=== PATIENT | female | born 1970 | race Hispanic/Latino ===

== ENCOUNTER 2018-11-15 15:32 | Observation (INO) | payer BC, OTHER ==
[~2018-11-15] VITALS: Ht 152.4 cm; Wt 70.8 kg
[2018-11-15] MEDS ORDERED: SODIUM CHLORIDE 0.9% 1000ML 1,000 ML IV STA (17:02)
[2018-11-15] MEDS ORDERED: CEFTRIAXONE SOD 1 GM/NS 50 ML 50 ML IV ONE (17:02)
[2018-11-15] MEDS ORDERED: ONDANSETRON HCL INJ 2MG/ML 2ML 2 MG/ML VIAL IV ONE (17:02)
[2018-11-15] MEDS ORDERED: MORPHINE SULFATE INJ 4 MG/ML INJ 1ML IV ONE (17:02)
[2018-11-15 17:33] LABS: BASOPHILS # (AUTO) 0.1 (0.0-0.1); BASOPHILS % 0.5 % (0.0-1.0); EOSINOPHILS # (AUTO) 0.2 (0.0-0.4); EOSINOPHILS % 1.6 % (0.0-6.0); HEMOGLOBIN 13.2 g/dL (12.0-16.0); LYMPHOCYTES # (AUTO) 2.6 (1.0-3.2); LYMPHOCYTES % 27.2 % (18.0-39.1); MEAN CORPUSCULAR HEMOGLOBIN 31.5 pg (28-32); MEAN CORPUSCULAR HGB CONC 35.7 g/dL (31-35); MEAN CORPUSCULAR VOLUME 88.3 fL (81-99); MONOCYTES # (AUTO) 0.5 (0.2-0.8); MONOCYTES % 4.7 % (4.4-11.3); NEUTROPHILS # (AUTO) 6.3 (2.1-6.9); NEUTROPHILS % 65.7 % (38.7-80.0); PLATELET COUNT 222 x10e3/uL (140-360); RED BLOOD COUNT 4.19 x10e6/uL (3.6-5.1); RED CELL DISTRIBUTION WIDTH 12.4 % (11.7-14.4)
[2018-11-15 17:46] LABS: CLARITY,URINE CLOUDY (CLEAR); COLOR,URINE YELLOW (YELLOW); KETONES,URINE NEGATIVE (NEGATIVE); LEUKOCYTE ESTERASE ,URINE 2+ (NEGATIVE); NITRITE,URINE NEGATIVE (NEGATIVE); PROTEIN,URINE DIPSTICK 2+ (NEGATIVE)
[2018-11-15 17:47] LABS: BILIRUBIN,URINE NEGATIVE (NEGATIVE); PREGNANCY TEST, URINE NEGATIVE (NEGATIVE); URINE UROBILINOGEN 0.2 mg/dL (0.2 - 1)
[2018-11-15 17:50] LABS: BACTERIA,URINE MODERATE /HPF; RBC,URINE 21-50 /HPF (0-5)
[2018-11-15 17:53] LABS: ALANINE AMINOTRANSFERASE 28 IU/L (0-55); ALKALINE PHOSPHATASE 97 IU/L (40-150); ANION GAP 14.4 mmol/L (8-16); BLOOD UREA NITROGEN 12 mg/dL (7-26); BUN/CREATININE RATIO 16 (6-25); CALCIUM 9.7 mg/dL (8.4-10.2); CARBON DIOXIDE 24 mmol/L (22-29); CHLORIDE 103 mmol/L (98-107); CREATININE, SERUM 0.74 mg/dL (0.57-1.11); EST GLOMERULAR FILTRATION RATE > 60 ML/MIN (60-); GLUCOSE 135 mg/dL (74-118); POTASSIUM 3.4 mmol/L (3.5-5.1); SODIUM 138 mmol/L (136-145)
[2018-11-15 18:05] LABS: AMYLASE 35 U/L (25-125); LIPASE 18 U/L (8-78)
--- NOTE | 2018-11-15 18:38 | Diagnostic Imaging Report ---
EXAM: CT of the abdomen and pelvis WITHOUT contrast HISTORY: Stone protocol, right flank and right lower quadrant pain COMPARISON: None available. TECHNIQUE: The abdomen and pelvis were scanned utilizing a multidetector helical scanner. Coronal and sagittal reformats are available. PROTOCOL: Renal colic IV CONTRAST: None, which limits sensitivity and specificity of evaluation of the soft tissues and vascular structures. ORAL CONTRAST: None, which limits sensitivity and specificity of evaluation of the bowel. RADIATION DOSE: Total DLP: 421.21 mGy*cm Estimated effective dose: (DLP x 0.015 x size factor) Dose modulation, iterative reconstruction, and/or weight based adjustment of the mA/kV was utilized to reduce the radiation dose to as low as reasonably achievable. COMPLICATIONS: None FINDINGS: LOWER THORAX: Unremarkable. HEPATOBILIARY: No definite focal hepatic lesions. No biliary ductal dilatation. Metallic clips in the right upper quadrant of the abdomen are compatible with prior cholecystectomy. SPLEEN: No splenomegaly. PANCREAS: No focal masses or ductal dilatation. ADRENALS: No adrenal nodule. KIDNEYS/URETERS: No hydronephrosis or solid mass lesion identified. A 2 mm calcification at the distal right ureter. An adjacent punctate calcific density appears just anterior to the distal ureter and a more distal 3 mm calcific density appears just posterior to the distal ureter ureter. A metallic surgical clip between the anterior margin of the right kidney and the liver. PELVIC ORGANS/BLADDER: The urinary bladder is partially decompressed, accentuating the diffusely thickened appearance of the urinary bladder wall. PERITONEUM / RETROPERITONEUM: No free air or fluid. GI TRACT: On limited evaluation of the gastrointestinal tract, no dilation or wall thickening identified. The appendix appears normal. The stomach is partially decompressed, limiting evaluation. LYMPH NODES: No pathologically enlarged lymph nodes. VESSELS: Diffuse scattered atherosclerotic vascular calcifications. BONES: No aggressive osseous lesion or acute fracture. SOFT TISSUES: Small fat-containing focal hernia no adjacent fat stranding. IMPRESSION: Probable 2 mm punctate, nonobstructing, stone within the distal right ureter. The 2 additional calcifications are likely phleboliths adjacent to the distal ureter. Signed by: Dr. En Sunshine D.O., M.M.M. on 11/15/2018 6:35 PM
[2018-11-15] MEDS ORDERED: HYDROMORPHONE 1MG/1ML INJ IV PRN (19:30)
[2018-11-15] MEDS ORDERED: ONDANSETRON HCL INJ 2MG/ML 2ML 2 MG/ML VIAL IV PRN (19:30)
[2018-11-15] MEDS ORDERED: ACETAMINOPHEN 325 MG TAB PO PRN (19:30)
--- OUTSIDE RECORDS SUMMARY | 2018-11-15 19:43 | XMS REPORT ---
Author [facility] Address Unknown Phone Unavailable Care Team Providers Care Pizza Cook Name Role Phone Preeti TORRES Unavailable Unavailable Problems This patient has no known problems. Allergies, Adverse Reactions, Alerts This patient has no known allergies or adverse reactions. Medications This patient has no known medications. Results Test Description Test Time Test Comments Text Results Atomic Results Result Comments CT ABDOMEN/PELVIS WO 2018-11-15 18:26:00 [place] [address] Patient Name: CESARIO CROWDER MR #: [id number] : 1970 Age/Sex: 48/F Req #: [id number] Adm Physician: Ordered by: LISSETTE DIETZ POT FEEDER Report #: [id number] Location: ER Room/Bed: Procedure: [id number] CT/CT ABDOMEN/PELVIS WO Exam Date: 11/15/18 Exam Time: 1800 REPORT STATUS: Signed EXAM: CT of the abdomen and pelvis WITHOUT contrast HISTORY: Stone protocol, right flank and right lower quadrant pain COMPARISON: None available. TECHNIQUE: The abdomen and pelvis were scanned utilizing a multidetector helical scanner. Coronal and sagittal reformats are available. PROTOCOL: Renal colic IV CONTRAST: None, which limits sensitivity and specificity of evaluation of the soft tissues and vascular structures. ORAL CONTRAST: None, which limits sensitivity and specificity of evaluation of the bowel. RADIATION DOSE: Total DLP: 421.21 mGy*cm Estimated effective dose: (DLP x 0.015 x size factor) Dose modulation, iterative reconstruction, and/or weight based adjustment of the mA/kV was utilized to reduce the radiation dose to as low as reasonably achievable. COMPLICATIONS: None FINDINGS: LOWER THORAX: Unremarkable. HEPATOBILIARY: No definite focal hepatic lesions. No biliary ductal dilatation. Metallic clips in the right upper quadrant of the abdomen are compatible with prior cholecystectomy. SPLEEN: No splenomegaly. PANCREAS: No focal masses or ductal dilatation. ADRENALS: No adrenal nodule. KIDNEYS/URETERS: No hydronephrosis or solid mass lesion identified. A 2 mm calcification at the distal right ureter. An adjacent punctate calcific density appears just anterior to the distal ureter and a more distal 3 mm calcific density appears just posterior to the distal ureter ureter. A metallic surgical clip between the anterior margin of the right kidney and the liver. PELVIC ORGANS/BLADDER: The urinary bladder is partially decompressed, accentuating the diffusely thickened appearance of the urinary bladder wall. PERITONEUM / RETROPERITONEUM: No free air or fluid. GI TRACT: On limited evaluation of the gastrointestinal tract, no dilation or wall thickening identified. The appendix appears normal. The stomach is partially decompressed, limiting evaluation. LYMPH NODES: No pathologically enlarged lymph nodes. VESSELS: Diffuse scattered atherosclerotic vascular calcifications. BONES: No aggressive osseous lesion or acute fracture. SOFT TISSUES: Small fat-containing focal hernia no adjacent fat stranding. IMPRESSION: Probable 2 mm punctate, nonobstructing, stone within the distal right ureter. The 2 additional calcifications are likely phleboliths adjacent to the distal ureter. Signed by: Cortney MorrisonO., M.M.M. on 11/15/2018 6:35 PM Dictated By: MIGUELITO DONAHUE DO 34 Transcribed By: DIOGO on 11/15/181834 COPY TO: LISSETTE DIETZ NP
[2018-11-15] MEDS: CEFTRIAXONE SOD 1 GM/NS 50 ML 50 ML IV SCH (19:58)
[2018-11-15] MEDS ORDERED: HYDROMORPHONE 2MG/ML 2 MG/ML ML IV PRN (20:00)
[2018-11-15] MEDS: SODIUM CHLORIDE 0.9% 1000ML 1,000 ML IV SCH (20:38)
[2018-11-16] VITALS (7 sets, daily range): BP systolic 93–108; BP diastolic 47–58
--- NOTE | 2018-11-16 02:21 | NUR ---
Pt received from ER. Pt A&O and in no apparent distress. Pt on room air and no tele. Pt son at bedside. All safety measures ensured and pt call baca near.
[2018-11-16] MEDS: SODIUM CHLORIDE 0.9% 1000ML 1,000 ML IV SCH ×3 (05:19→20:17)
[2018-11-16 06:11] LABS: BASOPHILS # (AUTO) 0.1 (0.0-0.1); BASOPHILS % 0.6 % (0.0-1.0); EOSINOPHILS # (AUTO) 0.1 (0.0-0.4); EOSINOPHILS % 1.6 % (0.0-6.0); HEMATOCRIT 32.8 % (34.2-44.1); HEMOGLOBIN 11.1 g/dL (12.0-16.0); LYMPHOCYTES # (AUTO) 2.8 (1.0-3.2); LYMPHOCYTES % 31.8 % (18.0-39.1); MEAN CORPUSCULAR HEMOGLOBIN 30.8 pg (28-32); MEAN CORPUSCULAR HGB CONC 33.8 g/dL (31-35); MEAN CORPUSCULAR VOLUME 91.1 fL (81-99); MONOCYTES # (AUTO) 0.5 (0.2-0.8); MONOCYTES % 5.6 % (4.4-11.3); NEUTROPHILS # (AUTO) 5.2 (2.1-6.9); NEUTROPHILS % 59.9 % (38.7-80.0); PLATELET COUNT 193 x10e3/uL (140-360); RED CELL DISTRIBUTION WIDTH 12.4 % (11.7-14.4)
[2018-11-16 06:57] LABS: ALANINE AMINOTRANSFERASE 36 IU/L (0-55); ALBUMIN 3.2 g/dL (3.5-5.0); ALKALINE PHOSPHATASE 81 IU/L (40-150); ANION GAP 13.8 mmol/L (8-16); BLOOD UREA NITROGEN 9 mg/dL (7-26); BUN/CREATININE RATIO 13 (6-25); CALCIUM 8.6 mg/dL (8.4-10.2); CARBON DIOXIDE 24 mmol/L (22-29); CHLORIDE 107 mmol/L (98-107); CREATININE, SERUM 0.71 mg/dL (0.57-1.11); EST GLOMERULAR FILTRATION RATE > 60 ML/MIN (60-); GLUCOSE 129 mg/dL (74-118); POTASSIUM 3.8 mmol/L (3.5-5.1); SODIUM 141 mmol/L (136-145)
[2018-11-16] MEDS ORDERED: DEXTROSE 50% SYRINGE 50 ML IV PRN (10:00)
[2018-11-16 10:27] LABS: CHOL/HDL RATIO 4.7 (3.0-3.6)
[2018-11-16 10:48] LABS: FREE THYROXINE INDEX 1.909 (1.4-3.8); THYROID STIMULATING HORMONE 1.72 uIU/mL (0.350-4.940)
[2018-11-16] MEDS: INSULIN REGULAR, HUMAN 100 UNIT/1 ML 3ML VIAL SQ SCH ×3 (11:30→20:12)
--- NOTE | 2018-11-16 14:22 | NUR ---
SOCIAL WORK INITIAL ASSESSMENT Supervisor Accounting Clerks to bedside to discuss plan of care with patient/family. CM/SW role and care transitions discussed. Anticipated discharge plan discussed along with duration of care. CM/SW discussed patients right to make decisions in care. CM/SW work hours given. Patient lives: HOUSE WITH FAMILY Admit/Transfer: VIA SURGERY POA/Emergency contact: LUC [phone] Current/Previous Home Health: NONE PCP/Follow-up Care: ANDREA Current/Previous DME: NONE Other Services: NONE Employment Status: NONE Areas of Concerns: NONE Referral Needs: NONE Education Needs: NONE IMM/BHANDARI given and signed (if applicable): NA Goal for discharge: RETURN HOME CM/SW left business card at the bedside with contact information. Name and number was also written on the patients whiteboard. Patient verbalized understanding of discussion. CM will follow-up with ongoing discharge and transition of care needs.
--- NOTE | 2018-11-16 15:44 | History and Physical ---
Ms. Diaz is a pleasant 48-year-old woman, born in [place], speaks only Nigerian, who presented to the emergency room with a complaint of red urine and painful urination. HISTORY OF PRESENT ILLNESS: The patient reports she has had this for the last couple of days and evidently some right flank pain as well. She is not sure if she has had any fever. She denies having urinary tract infection in the past. PAST MEDICAL HISTORY: Significant for cholecystectomy about 20 years ago and surgery for endometritis about 13 years ago. MEDICATIONS: She reports she takes no medications at home. Does not know of any or other problems. PERSONAL AND SOCIAL HISTORY: She does not work. 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 Does not speak any Lithuanian. REVIEW OF SYSTEMS: Negative. PHYSICAL EXAMINATION: GENERAL: At this time shows an obese woman 5 feet tall, 160 pounds. VITAL SIGNS: Afebrile, blood pressure 99/53. HEAD, EYES, EARS, NOSE, AND THROAT: Unremarkable. NECK: Thick. No jugular venous distention. THORAX: Heart sounds S1 and S2 are equal. No murmurs. LUNGS: Clear. ABDOMEN: Protuberant. EXTREMITIES: No cyanosis, clubbing, or edema. LABORATORY DATA: Urinalysis shows 21-50 red cells, 11-20 white cells. Glucose is of 129 and 135. CAT scan of the abdomen shows a 2 mm right ureteral stone. BUN 9, creatinine 0.7. ASSESSMENT: 1. Urinary tract infection. 2. Tiny ureteral stone. 3. . PLAN: We will give IV fluids and antibiotics. Check hemoglobin A1c and repeat glucoses. Further management based on clinical course. MD TAMIE Salguero/MODL /[id number] cc: Mike Mojica MD
--- NOTE | 2018-11-16 19:00 | NUR ---
received report from day nurse. patient is resting comfortably in bed. bed is in lowest position and call baca is within reach. will continue to monitor patient.
[2018-11-16] MEDS: CEFTRIAXONE SOD 1 GM/NS 50 ML 50 ML IV SCH (20:27)
--- NOTE | 2018-11-16 22:57 | Consultation ---
DATE OF CONSULTATION: 11/16/2018 Urologic Consultation Consultation is called by the emergency room. CHIEF COMPLAINT AND REASON FOR CONSULTATION: Ureteral calculus. HISTORY OF PRESENT ILLNESS: Ms. Diaz is a 48-year-old female patient, who was contacted by an outside emergency room. She has had signs of urinary tract infection as well as burning with urination and obstructing ? infected stones. She denied fevers. No chills. Denied nausea or vomiting. Reports pain at 10/10. PAST MEDICAL HISTORY: As above. MEDICATIONS: Please see MAR. ALLERGIES: SULFA. SOCIAL HISTORY: Denied smoking or drinking. FAMILY HISTORY: Denied urologic stones or malignancies. REVIEW OF SYSTEMS: Noncontributory, other than problems mentioned above for 12 organ systems. PHYSICAL EXAMINATION: GENERAL: Middle-aged female, currently in no acute distress. VITAL SIGNS: Temperature 99, pulse 93, respirations 17, and blood pressure 114/63. HEENT: Sclerae anicteric. NECK: Supple. BACK: Without costovertebral angle tenderness bilaterally. ABDOMEN: Currently, soft, nontender, and nondistended. No palpable mass. No palpable hernias. No palpable lymphadenopathy. : Normal female external genitalia. EXTREMITIES: No edema. NEURO: Moves 4 extremities. PSYCH: Alert. Mood is appropriate. SKIN: Intact. Normal color. PERTINENT LABORATORY DATA: CT scan revealing a 2 mm right distal ureteral calculus with proximal hydronephrosis, ? 3 mm right distal ureteral calculus as well. Urinalysis, 21-50 reds, 11-20 whites, 2+ protein. Sodium 141, potassium 3.8, chloride 107, bicarb 24, BUN 9, creatinine 0.7, glucose 129. Hemoglobin 13, hematocrit 37, platelet count 232,000, white cell count 9600. IMPRESSION: 1. Right ureteral calculus. 2. Right hydronephrosis. 3. Urinary tract infection. 4. Microscopic hematuria. 5. Renal colic. 6. Hypotension. PLAN: The patient has been begun on broad-spectrum IV antibiotics, we will agree with this. Hydrate the patient aggressively. Hopefully, she will pass her stone. Should she fail a trial passage, may need stenting. Thank you for allowing me to participate in the care of your patient. We will be happy to follow along with you. MD BALAJI Block/MODL /[id number]
[2018-11-17] VITALS (8 sets, daily range): BP systolic 88–103; BP diastolic 46–54
--- NOTE | 2018-11-17 07:08 | NUR ---
report given to day nurse. patient is resting comfortably in bed. bed is in lowest position and call baca is within reach. will continue to monitor patient.
[2018-11-17] MEDS: INSULIN REGULAR, HUMAN 100 UNIT/1 ML 3ML VIAL SQ SCH ×4 (07:30→20:17)
[2018-11-17] MEDS: SODIUM CHLORIDE 0.9% 1000ML 1,000 ML IV SCH ×3 (08:21→20:17)
--- NOTE | 2018-11-17 13:20 | Diagnostic Imaging Report ---
EXAM: Abdomen 2 Views INDICATION: ^TO CHECK OUT KIDNEY STONES ^[id number] ^[id number] COMPARISON: Ct A/P 11/15/2018 FINDINGS: Lines/tubes: None. Moderate of stool in the colon. No dilated loops of small bowel. Tiny calcification in the right pelvis may still represent the distal right ureteral stone. No abnormal soft tissue masses. No degenerative changes in the lumbar spine and pelvis. Surgical clips overlying the right upper quadrant. IMPRESSION: Tiny calcification in the right pelvis may still represent the distal right ureteral stone. Signed by: Dr. Meaghan Mendez M.D. on 11/17/2018 1:16 PM
[2018-11-17] MEDS: CEFTRIAXONE SOD 1 GM/NS 50 ML 50 ML IV SCH (20:17)
[2018-11-18] VITALS: BP 108/55
[2018-11-18] MEDS: SODIUM CHLORIDE 0.9% 1000ML 1,000 ML IV SCH ×2 (03:27→11:36)
[2018-11-18 05:45] VITALS: BP 93/51
--- NOTE | 2018-11-18 06:49 | NUR ---
report given to day nurse. patient is resting in bed. bed is in lowest position and call baca is within reach.
[2018-11-18] MEDS: INSULIN REGULAR, HUMAN 100 UNIT/1 ML 3ML VIAL SQ SCH ×2 (07:30→11:30)
[2018-11-18 07:41] VITALS: BP 99/53
[2018-11-18 09:45] VITALS: BP 99/53
[2018-11-18 11:35] VITALS: BP 102/51
--- NOTE | 2018-11-18 11:42 | NUR ---
PT ASKED TO CLARIFY PROCEDURE ORDERS WITH MD ABDUL BECAUSE THIS MORNING DURING ROUNDS HE STATED SHE WOULD GO HOME TODAY. PAGED AND SPOKE TO DR. ABDUL STATES PT OK TO D/C HOME TODAY FROM HIS STANDPOINT SINCE PT IS NO LONGER HAVING PAIN.
--- NOTE | 2018-11-18 13:31 | NUR ---
DR. MENDEZ MAKING ROUNDS AT THIS TIME NOTIFIED PT CAN D/C HOME PER DR. ABDUL. DR. MENDEZ REQUESTS DR. ABDUL BE CALLED FOR RECOMMENDATION ON ANTIBIOTIC DUE TO URINE Cx POSITIVE FOR E.COLI. SPOKE TO DR. ABDUL HE RECOMMENDS CIPRO. DR. MENDEZ NOTIFIED AT THIS TIME.
[2018-11-18] MEDS ORDERED: CIPRO500 MG PO (13:43)
--- NOTE | 2018-11-18 14:00 | NUR ---
D/C INSTRUCTIONS AND PRESCRIPTION FOR CIPRO GIVEN. PT VERBALIZED UNDERSTANDING. IV D/C AND PRESSURE DRESSING APPLIED.
--- NOTE | 2018-11-18 14:34 | Discharge Summary ---
Ms. Diaz is a pleasant 48-year-old woman, generally healthy, who presented to the emergency room with flank pain and dysuria. HOSPITAL COURSE: Initial evaluation suggested ureteral stone and urinary tract infection. Urine culture grew E coli sensitive to all types of antibiotics, nonresistant, but the patient is allergic to Bactrim and she was given initially Rocephin. She is currently afebrile, but KUB done on the shows continued small stone. She was seen by Dr. Mojica and today he feels that she can be discharged to home. Her glucoses are all mildly abnormal, 138, 141, 163, 129, and 128. Her thyroid functions are normal. Hemoglobin A1c is 6.4. She is discharged home to take ciprofloxacin 500 mg twice a day and follow up with Dr. Mojica in his office. She will follow up with Dr. Mike Nava for management of hyperglycemia. DISCHARGE DIAGNOSES: 1. Urinary tract infection. 2. Renal stone. 3. Hyperglycemia. MD TAMIE Salguero/MIRIAN /[id number] cc: Mike Nava
[2018-11-18] MEDS ORDERED: CIPROFLOXACIN 500 MG TAB PO SCH (17:00)
== END 2018-11-18 14:05 | disposition home or self-care (01) ==
LOC: ER 15:32 → ERHOLD 19:40 → IMCU 11-16 02:33 → OBSVTOIN 11-18 12:57 → INTOOBSV 11-18 12:57
PROVIDERS: ADMIT Internal Medicine Cardiovascular Disease; ATTEND Internal Medicine Cardiovascular Disease
DX: N13.6 Pyonephrosis (principal); R31.29 Other microscopic hematuria; Z90.49 Acquired absence of other specified parts of digestive tract; N80.9 Endometriosis, unspecified; Z88.2 Allergy status to sulfonamides; Z88.8 Allergy status to other drugs, medicaments and biological substances; I95.9 Hypotension, unspecified; B96.20 Unspecified Escherichia coli [E. coli] as the cause of diseases classified elsewhere; R73.9 Hyperglycemia, unspecified
CPT/HCPCS: 36415 ×4; 74018; 74176; 80053 ×2; 80061; 81001; 81025; 82150; 82948 ×3; 83036; 83690; 84436; 84443; 84479; 85025 ×2; 87086; 87186; 93005; 99284; G0378 ×4; J0696 ×3; J1170; J1817; J2270; J2405 ×2; J7030 ×4

== ENCOUNTER 2020-03-29 17:56 | Emergency (ER) | payer BC ==
[~2020-03-29] VITALS: Ht 154.9 cm; Wt 74.8 kg
[~2020-03-29 17:56] MED LIST: CIPRO500 MG PO
--- OUTSIDE RECORDS SUMMARY | 2020-03-29 18:24 | XMS REPORT | Continuity of Care Document ---
Author Author [facility] t Organization [facility] Address [address] [place] [address] Phone Unavailable Care Team Providers Care Pin Feather Machine Operator Name Role Phone MARY UGALDE PCP SWEET, Catalina LAIRD Attphys Unavailable MENDEZ, A GIOVANY Attphys Unavailable MENDEZ, A GIOVANY Admphys Unavailable Payers Payer Name Policy Type Policy Number Effective Date Expiration Date Preeti courtney [employer] Ppo [id number] [facility] I [facility] Problems Condition Name Condition Details Condition Category Status Onset Date Resolution Date Last Treatment Date Treating Clinician Comments Source Urinary tract infection UTI (urinary tract infection) Problem Active [facility] Calculus of ureter Ureterolithiasis Problem Active [facility] Allergies, Adverse Reactions, Alerts Allergy Name Allergy Type Status Severity Reaction(s) Onset Date Inacti ve Date Treating Clinician Comments Source Sulfamethoxazole Allergy to Substance Active Mild HIVES 2018-11-15 00:00:00 [facility] Trimethoprim Allergy to Substance Active Mild HIVES 2018-11-15 00:00:0 0 [facility] Medications Ordered Medication Name Filled Medication Name Start Date Stop Da te Current Medication? Ordering Clinician Indication Dosage Frequency Signature (SIG) Comments Components Source Ciprofloxacin Hcl (Cipro) 500 Mg Tablet Ciprofloxacin Hcl (C ipro) 500 Mg Tablet Yes 500 Twice A Day [facility] Procedures Procedure Date / Time Performed Performing Clinician [facility] e X-ray of chest, single view 2019-08-13 00:00:00 NATALIYA COLEMAN [facility] CT of abdomen and pelvis without contrast 2018-11-15 00:00:00 LISSETTE ZHU [facility] Encounters Start Date/Time End Date/Time Encounter Type Admission Type Attendi [facility] Facility Care Department Encounter ID Source 2019-08-13 14:50:00 2019-08-13 19:54:00 Departed Emergency Room 1 JYOTI GHOSH [facility] [id number] [facility] 2018-11-15 19:40:00 2018-11-18 14:05:00 Discharged Inpatient (obs) 1 GIOVANY MENDEZ [facility] [id number] [facility] Results Test Description Test Time Test Comments Results Result Comments Source B-Type Natriuretic Peptide 2019-08-13 17:00:00 Test Item B-Type Natriuretic Peptide (test code = 88312-7) 20.7 0-100 [facility] CenterCreatine Kinase [id number] 16:58:00* Test Item Value Reference Range Interpretation Comments Creatine Kinase MB (test code = 27659-0) 2.40 0-5.0 [facility] CenterTroponin [id number] 16:58:00* Test Item Value Reference Range Interpretation Comments Troponin I (test code = DNZ3379) 0.028 0-0.300 [facility] CenterProthrombin Glyn3899-86-94 16:57:00* Test Item Value Reference Range Interpretation Comments Prothrombin Time (test code = 5902-2) 11.9 11.9-14.5 [facility] CenterProthromb Time International Ratio 2019-08-13 16:57:00* Test Item Value Reference Range Interpretation Comments Prothromb Time International Ratio (test code = 6301-6) 0.83 Oral Anticoagulant Therapy INR Values:1. Low Intensity Therapy 1.5 - 2.02 . Moderate Intensity Therapy 2.0 - 3.03. High Intensity Therapy(1) 2.5 - 3. 54. High Intensity Therapy(2) 3.0 - 4.05. Panic Value INR > 5.0 [facility] CenterActivated Partial Thromboplast Time 2019-08-13 16:57:00* Test Item Value Reference Range Interpretation Comments Activated Partial Thromboplast Time (test code = 30912-2) 29.2 23.8-35.5 [facility] Yylhg4565-95-31 16:49:00* Test Item Value Reference Range Interpretation Comments Sodium Level (test code = 2951-2) 138 136-145 [facility] CenterPotassium Lbtlk4131-78-31 16:49:00* Test Item Value Reference Range Interpretation Comments Potassium Level (test code = 2823-3) 3.8 3.5-5.1 [facility] CenterChloride Fvcxn6883-27-35 16:49:00* Test Item Value Reference Range Interpretation Comments Chloride Level (test code = 2075-0) 102 98-107 [facility] CenterCarbon Dioxide Axxrb5003-33-50 16:49:00* Test Item Value Reference Range Interpretation Comments Carbon Dioxide Level (test code = 2028-9) 26 22-29 [facility] CenterAnion Ntr6667-80-68 16:49:00* Test Item Value Reference Range Interpretation Comments Anion Gap (test code = 46184-1) 13.8 8-16 [facility] CenterBlood Urea Vbtoajgp3119-50-10 16:49:00* Test Item Value Reference Range Interpretation Comments Blood Urea Nitrogen (test code = 3094-0) 12 7-26 [facility] CenterCreatinine2020-01-21 16:49:00* Test Item Value Reference Range Interpretation Comments Creatinine (test code = 2160-0) 0.79 0.57-1.11 [facility] CenterBUN/Creatinine Lhsyp4055-17-44 16:49:00* Test Item Value Reference Range Interpretation Comments BUN/Creatinine Ratio (test code = 3097-3) 15 6-25 [facility] CenterEstimat Glomerular Filtration Rate 2019-08-13 16:49:00* Test Item Value Reference Range Interpretation Comments Estimat Glomerular Filtration Rate (test code = 638244962) > 60 >60 Ranges were taken from the National Kidney Disease Education Program and the [facility] Kidney Foundation literature.Reference ranges:60 or greater: Wwvfmq75-00 ( for 3 consecutive months): Chronic kidney disease 15 or less: Kidney failureWilson N. Jones Regional Medical CenterGlucose Czwpw2734-10-70 16:49:00* Test Item Value Reference Range Interpretation Comments Glucose Level (test code = LOS2935) 198 74-118 H [facility] CenterCalcium Gayqo9157-68-58 16:49:00* Test Item Value Reference Range Interpretation Comments Calcium Level (test code = 35588-1) 9.5 8.4-10.2 [facility] CenterTotal Tjmarhmbe5970-43-26 16:49:00* Test Item Value Reference Range Interpretation Comments Total Bilirubin (test code = 1975-2) 0.3 0.2-1.2 [facility] CenterAspartate Amino Transf (AST/SGOT) 2019-08-13 16:49:00* Test Item Value Reference Range Interpretation Comments Aspartate Amino Transf (AST/SGOT) (test code = Aspartate Amino Transf (AST/SGOT)) 36 5-34 H [facility] CenterAlanine Aminotransferase (ALT/SGPT) 2019-08-13 16:49:00* Test Item Value Reference Range Interpretation Comments Alanine Aminotransferase (ALT/SGPT) (test code = 1742-6) 53 0-55 [facility] CenterTotal Ebyywkk5395-10-94 16:49:00* Test Item Value Reference Range Interpretation Comments Total Protein (test code = 2885-2) 7.5 6.5-8.1 [facility] CenterAlbumin2020-01-21 16:49:00* Test Item Value Reference Range Interpretation Comments Albumin (test code = 1751-7) 4.1 3.5-5.0 [facility] CenterGlobulin2020-01-21 16:49:00* Test Item Value Reference Range Interpretation Comments Globulin (test code = 92763-5) 3.4 2.3-3.5 [facility] CenterAlbumin/Globulin Pdjut7409-17-12 16:49:00 * Test Item Value Reference Range Interpretation Comments Albumin/Globulin Ratio (test code = 1759-0) 1.2 0.8-2.0 [facility] CenterAlkaline Wealupkwrum0784-99-57 16:49:00* Test Item Value Reference Range Interpretation Comments Alkaline Phosphatase (test code = 6768-6) 96 40-150 [facility] CenterCreatine Kdjhwb9899-72-10 16:49:00* Test Item Value Reference Range Interpretation Comments Creatine Kinase (test code = 2157-6) 150 29-168 [facility] CenterLipase2020-01-21 16:49:00* Test Item Value Reference Range Interpretation Comments Lipase (test code = 3040-3) 23 8-78 [facility] CenterWhite Blood Rbbov0714-21-79 16:37:00* Test Item Value Reference Range Interpretation Comments White Blood Count (test code = 6690-2) 6.78 4.8-10.8 [facility] CenterRed Blood Njkbr3048-57-50 16:37:00* Test Item Value Reference Range Interpretation Comments Red Blood Count (test code = 789-8) 4.18 3.6-5.1 [facility] CenterHemoglobin2020-01-21 16:37:00* Test Item Value Reference Range Interpretation Comments Hemoglobin (test code = 94828-2) 13.3 12.0-16.0 [facility] CenterHematocrit2020-01-21 16:37:00* Test Item Value Reference Range Interpretation Comments Hematocrit (test code = 4544-3) 37.8 34.2-44.1 [facility] CenterMean Corpuscular Ztibta1208-02-91 16:37:00* Test Item Value Reference Range Interpretation Comments Mean Corpuscular Volume (test code = 787-2) 90.4 81-99 [facility] CenterMean Corpuscular Fehtmslrtj9164-90-05 16:37:00* Test Item Value Reference Range Interpretation Comments Mean Corpuscular Hemoglobin (test code = 785-6) 31.8 28-32 [facility] CenterMean Corpuscular Hemoglobin Concent 2019-08-13 16:37:00* Test Item Value Reference Range Interpretation Comments Mean Corpuscular Hemoglobin Concent (test code = 786-4) 35.2 31-35 H [facility] CenterRed Cell Distribution Dihwj9955-06-18 16:37:00* Test Item Value Reference Range Interpretation Comments Red Cell Distribution Width (test code = 32258-8) 12.5 11.7 -14.4 [facility] CenterPlatelet Jiuij4289-14-94 16:37:00* Test Item Value Reference Range Interpretation Comments Platelet Count (test code = 777-3) 220 140-360 [facility] CenterNeutrophils (%) (Auto)2019-08-13 16:37:00 * Test Item Value Reference Range Interpretation Comments Neutrophils (%) (Auto) (test code = 64402-8) 46.2 38.7-80.0 [facility] CenterLymphocytes (%) (Auto)2019-08-13 16:37:00 * Test Item Value Reference Range Interpretation Comments Lymphocytes (%) (Auto) (test code = 736-9) 42.8 18.0-39.1 H [facility] CenterMonocytes (%) (Auto)2019-08-13 16:37:00* Test Item Value Reference Range Interpretation Comments Monocytes (%) (Auto) (test code = 5905-5) 5.5 4.4-11.3 [facility] CenterEosinophils (%) (Auto)2019-08-13 16:37:00 * Test Item Value Reference Range Interpretation Comments Eosinophils (%) (Auto) (test code = 713-8) 4.0 0.0-6.0 [facility] CenterBasophils (%) (Auto)2019-08-13 16:37:00* Test Item Value Reference Range Interpretation Comments Basophils (%) (Auto) (test code = 706-2) 0.9 0.0-1.0 [facility] CenterIM GRANULOCYTES %2019-08-13 16:37:00* Test Item Value Reference Range Interpretation Comments IM GRANULOCYTES % (test code = IM GRANULOCYTES %) 0.6 0.0- 1.0 [facility] CenterNeutrophils # (Auto)2019-08-13 16:37:00* Test Item Value Reference Range Interpretation Comments Neutrophils # (Auto) (test code = 751-8) 3.1 2.1-6.9 [facility] CenterLymphocytes # (Auto)2019-08-13 16:37:00* Test Item Value Reference Range Interpretation Comments Lymphocytes # (Auto) (test code = 63281-7) 2.9 1.0-3.2 [facility] CenterMonocytes # (Auto)2019-08-13 16:37:00* Test Item Value Reference Range Interpretation Comments Monocytes # (Auto) (test code = 742-7) 0.4 0.2-0.8 [facility] CenterEosinophils # (Auto)2019-08-13 16:37:00* Test Item Value Reference Range Interpretation Comments Eosinophils # (Auto) (test code = 711-2) 0.3 0.0-0.4 [facility] CenterBasophils # (Auto)2019-08-13 16:37:00* Test Item Value Reference Range Interpretation Comments Basophils # (Auto) (test code = 704-7) 0.1 0.0-0.1 [facility] CenterAbsolute Immature Granulocyte (auto 2019-08-13 16:37:00* Test Item Value Reference Range Interpretation Comments Absolute Immature Granulocyte (auto (roel t code = Absolute Immature Granulocyte (auto) 0.04 0-0.1 [facility] CenterCHEST SINGLE (NOT PORTABLE)2019-08-13 16:33:00 [place] [address] Patient Name: CESARIO CROWDER MR #: [id number] : 1970 Age/Sex: 48/F Req #: [id number] Adm Physician: Ordered by: NATALIYA COLEMAN DELIVERY MAN Report #: [id number] Location: ER Room/Bed: Procedure: [id number] DX/CHEST SINGLE (NOT PORTABLE) Exam Date: Exam Time : REPORT STATUS: Signed EXAMINA TION: CHEST SINGLE (NOT PORTABLE) INDICATION: Chest pain COMPARIS ON: None FINDINGS: LINES/TUBES:None LUNGS:The lungs are well -inflated. No focal consolidation or pulmonary edema. PLEURA:No pleural eff usion or pneumothorax. MEDIASTINUM:The cardiomediastinal silhouette appears normal in size and shape. BONES/SOFT TISSUES:No acute osseous injury. ABDOMEN:No free air under the diaphragm. Status post cholecystectomy. I MPRESSION: No focal pneumonia or pulmonary edema. Signed by: Corine Tate MD on 08/13/2019 4:33 PM Dictated By: CORINE TATE MD 32 Transcribed By: DIOGO on 08/13/191632 COPY TO: NATALIYA COLEMAN NP Bedside Jiggbjl7639-98-25 11:31:00* Test Item Value Reference Range Interpretation Comments Bedside Glucose (test code = 05687-3) 128 70-120 H Meter ID: [id number] [facility]Bedside Glucose 2018-11-18 11:31:00* Test Item Value Reference Range Interpretation Comments Bedside Glucose (test code = 30740-6) 128 70-120 H Meter ID: [id number] [facility]ressABDOM-1VIEW (KUB) 2018-11-17 13:06:00 [place] [address] Patient Name: CESARIO CROWDER MR #: [id number] : 1970 Age/Sex: 48/F Req #: [id number] Adm Physician: GIOVANY MENDEZ MD Ordered by: GLENN ABDUL MD Report #: [id number] Location: [facility] Room/Bed: [place] [address] Procedure: [id number] DX/ABDOMEN-1VIEW (KUB) Exam Date: 11/17/18 Exam Singh e: 1152 REPORT STATUS: Signed EX AM: Abdomen 2 Views INDICATION: TO CHECK OUT KIDNEY STONES [id number] 1152 COMPARISON: Ct A/P 11/15/2018 FINDINGS: Lines/tubes: None. Moderate of stool in the colon. No dilated loops of small bowel. Ti ny calcification in the right pelvis may still represent the distal right uret eral stone. No abnormal soft tissue masses. No degenerative changes in th e lumbar spine and pelvis. Surgical clips overlying the right upper quadran t. IMPRESSION: Tiny calcification in the right pelvis may still represent the distal right ureteral stone. Signed by: Dr. Meaghan Perez M.D. on 11/17/2018 1:16 PM Dictated By: MEAGHAN PEREZ MD Elect ronically Signed By: MEAGHAN PEREZ MD on 11/17/18 1316 Transcribed By : DIOGO on 11/17/18 1316 COPY TO: GLENN ABDUL MD Urine Xxghjdl8873-79-36 09:40:00* Test Item Value Reference Range Interpretation Comments Urine Culture (test code = 630-4) Organism: ESCHERICHIA COLI [facility] CenterUrine Vewshey8338-47-61 09:40:00* Test Item Value Reference Range Interpretation Comments Urine Culture (test code = 630-4) No Result Data Provided [facility] CenterFree Thyroxine Xrflu2345-30-14 11:01:00* Test Item Value Reference Range Interpretation Comments Free Thyroxine Index (test code = 62237-7) 1.9090 1.4-3.8 [facility] CenterThyroxine (T4)2018-11-16 11:01:00* Test Item Value Reference Range Interpretation Comments Thyroxine (T4) (test code = 3026-2) 6.97 4.5-10.9 Our current method for Total T4 is not recommended for use as the only marker fo r evaluating patients for thyroid disorders.[facility] CenterTriiodothyronine (T3) Ibwdhh8893-16-13 11:01:00* Test Item Value Reference Range Interpretation Comments Triiodothyronine (T3) Uptake (test code = 3050-2) 27.39 22.5 -37.0 [facility] CenterThyroid Stimulating Hormone (TSH) 2018-11-16 11:01:00* Test Item Value Reference Range Interpretation Comments Thyroid Stimulating Hormone (TSH) (test code = 06154-2) 1.720 0.350-4.940 [facility] CenterFree Thyroxine Cdlwr9905-77-70 11:01:00* Test Item Value Reference Range Interpretation Comments Free Thyroxine Index (test code = 60427-9) 1.9090 1.4-3.8 [facility] CenterThyroxine (T4)2018-11-16 11:01:00* Test Item Value Reference Range Interpretation Comments Thyroxine (T4) (test code = 3026-2) 6.97 4.5-10.9 Our current method for Total T4 is not recommended for use as the only marker fo r evaluating patients for thyroid disorders.[facility] CenterTriiodothyronine (T3) Pyofcg4247-00-88 11:01:00* Test Item Value Reference Range Interpretation Comments Triiodothyronine (T3) Uptake (test code = 3050-2) 27.39 22.5 -37.0 [facility] CenterThyroid Stimulating Hormone (TSH) 2018-11-16 11:01:00* Test Item Value Reference Range Interpretation Comments Thyroid Stimulating Hormone (TSH) (test code = 35939-4) 1.720 0.350-4.940 [facility] CenterTriglycerides Ydclh7366-39-08 10:28:00* Test Item Value Reference Range Interpretation Comments Triglycerides Level (test code = 2571-8) 148 0-149 [facility] CenterCholesterol Pexbs0487-32-48 10:28:00* Test Item Value Reference Range Interpretation Comments Cholesterol Level (test code = 2093-3) 215 0-199 H Less than 200 mg/dL Low Ydcs028 - 239 mg/dL Borderline Jtlb146 m g/dl and greater High Risk [facility] CenterLDL Wxrrqcrzexn0004-12-57 10:28:00* Test Item Value Reference Range Interpretation Comments LDL Cholesterol (test code = 2089-1) 139 60-130 [facility] Cqdvsvcpgfc7252-83-43 10:28:00* Test Item Value Reference Range Interpretation Comments HDL Cholesterol (test code = 2085-9) 46 40-60 [facility] CenterCholesterol/HDL Oxcup7455-70-31 10:28:00 * Test Item Value Reference Range Interpretation Comments Cholesterol/HDL Ratio (test code = 9830-1) 4.7 3.0-3.6 H [facility] CenterTriglycerides Yficu7891-81-80 10:28:00* Test Item Value Reference Range Interpretation Comments Triglycerides Level (test code = 2571-8) 148 0-149 [facility] CenterCholesterol Rhzdf7790-12-05 10:28:00* Test Item Value Reference Range Interpretation Comments Cholesterol Level (test code = 2093-3) 215 0-199 H Less than 200 mg/dL Low Dgvx237 - 239 mg/dL Borderline Dgvs671 m g/dl and greater High Risk [facility] CenterLDL Zwtgjoaldaa4807-52-09 10:28:00* Test Item Value Reference Range Interpretation Comments LDL Cholesterol (test code = 2089-1) 139 60-130 [facility] Jtivhvlrril8300-19-28 10:28:00* Test Item Value Reference Range Interpretation Comments HDL Cholesterol (test code = 2085-9) 46 40-60 [facility] CenterCholesterol/HDL Rugpr9409-00-08 10:28:00 * Test Item Value Reference Range Interpretation Comments Cholesterol/HDL Ratio (test code = 9830-1) 4.7 3.0-3.6 H [facility] CenterHemoglobin A1c Dpjyvua2180-73-46 10:27:00 * Test Item Value Reference Range Interpretation Comments Hemoglobin A1c Percent (test code = Hemoglobin A1c Percent) 6.4 4.0-7.0 [facility] CenterHemoglobin A1c Ejueeyr1355-82-56 10:27:00 * Test Item Value Reference Range Interpretation Comments Hemoglobin A1c Percent (test code = Hemoglobin A1c Percent) 6.4 4.0-7.0 [facility] Hospitalodium Bmgqc0923-33-93 07:13:00* Test Item Value Reference Range Interpretation Comments Sodium Level (test code = 2951-2) 141 136-145 [facility] CenterPotassium Lytjo9222-55-23 07:13:00* Test Item Value Reference Range Interpretation Comments Potassium Level (test code = 2823-3) 3.8 3.5-5.1 [facility] CenterChloride Ikgon2403-74-76 07:13:00* Test Item Value Reference Range Interpretation Comments Chloride Level (test code = 2075-0) 107 98-107 [facility] CenterCarbon Dioxide Fneza1165-72-93 07:13:00* Test Item Value Reference Range Interpretation Comments Carbon Dioxide Level (test code = 2028-9) 24 22-29 [facility] CenterAnion Zdp0032-60-78 07:13:00* Test Item Value Reference Range Interpretation Comments Anion Gap (test code = 60587-5) 13.8 8-16 [facility] CenterBlood Urea Roorqclv2847-38-54 07:13:00* Test Item Value Reference Range Interpretation Comments Blood Urea Nitrogen (test code = 3094-0) 9 7-26 [facility] CenterCreatinine2019-04-26 07:13:00* Test Item Value Reference Range Interpretation Comments Creatinine (test code = 2160-0) 0.71 0.57-1.11 [facility] CenterBUN/Creatinine Qshjv8408-14-40 07:13:00* Test Item Value Reference Range Interpretation Comments BUN/Creatinine Ratio (test code = 3097-3) 13 6- [facility] CenterEstimat Glomerular Filtration Rate 2018-11-16 07:13:00* Test Item Value Reference Range Interpretation Comments Estimat Glomerular Filtration Rate (test code = 161499558) > 60 >60 Ranges were taken from the National Kidney Disease Education Program and the [facility] Kidney Foundation literature.Reference ranges:60 or greater: Mnitfv38-74 ( for 3 consecutive months): Chronic kidney disease 15 or less: Kidney failureWilson N. Jones Regional Medical CenterGlucose Evkos2895-84-34 07:13:00* Test Item Value Reference Range Interpretation Comments Glucose Level (test code = TYX8555) 129 74-118 H [facility] CenterCalcium Khepp4749-03-92 07:13:00* Test Item Value Reference Range Interpretation Comments Calcium Level (test code = 98810-7) 8.6 8.4-10.2 [facility] CenterTotal Mserwkelv1322-04-35 07:13:00* Test Item Value Reference Range Interpretation Comments Total Bilirubin (test code = 1975-2) 0.6 0.2-1.2 [facility] CenterAspartate Amino Transf (AST/SGOT) 2018-11-16 07:13:00* Test Item Value Reference Range Interpretation Comments Aspartate Amino Transf (AST/SGOT) (test code = Aspartate Amino Transf (AST/SGOT)) 34 5-34 [facility] CenterAlanine Aminotransferase (ALT/SGPT) 2018-11-16 07:13:00* Test Item Value Reference Range Interpretation Comments Alanine Aminotransferase (ALT/SGPT) (test code = 1742-6) 36 0-55 [facility] Zdxagip9633-46-12 07:13:00* Test Item Value Reference Range Interpretation Comments Total Protein (test code = 2885-2) 6.4 6.5-8.1 L [facility] CenterAlbumin2019-04-26 07:13:00* Test Item Value Reference Range Interpretation Comments Albumin (test code = 1751-7) 3.2 3.5-5.0 L [facility] CenterGlobulin2019-04-26 07:13:00* Test Item Value Reference Range Interpretation Comments Globulin (test code = 93848-4) 3.2 2.3-3.5 [facility] CenterAlbumin/Globulin Dkbqw5105-21-20 07:13:00 * Test Item Value Reference Range Interpretation Comments Albumin/Globulin Ratio (test code = 1759-0) 1.0 0.8-2.0 [facility] CenterAlkaline Rbkihyzkrvd8212-11-54 07:13:00* Test Item Value Reference Range Interpretation Comments Alkaline Phosphatase (test code = 6768-6) 81 40-150 [facility] CenterWhite Blood Tguug8889-81-82 06:16:00* Test Item Value Reference Range Interpretation Comments White Blood Count (test code = 6690-2) 8.69 4.8-10.8 [facility] CenterRed Blood Pkamd5129-11-14 06:16:00* Test Item Value Reference Range Interpretation Comments Red Blood Count (test code = 789-8) 3.60 3.6-5.1 [facility] CenterHemoglobin2019-04-26 06:16:00* Test Item Value Reference Range Interpretation Comments Hemoglobin (test code = 16227-0) 11.1 12.0-16.0 L [facility] CenterHematocrit2019-04-26 06:16:00* Test Item Value Reference Range Interpretation Comments Hematocrit (test code = 4544-3) 32.8 34.2-44.1 L [facility] CenterMean Corpuscular Ndtvyj4267-55-21 06:16:00* Test Item Value Reference Range Interpretation Comments Mean Corpuscular Volume (test code = 787-2) 91.1 81-99 [facility] CenterMean Corpuscular Eziqzmzpyg1529-80-66 06:16:00* Test Item Value Reference Range Interpretation Comments Mean Corpuscular Hemoglobin (test code = 785-6) 30.8 28-32 [facility] CenterMean Corpuscular Hemoglobin Concent 2018-11-16 06:16:00* Test Item Value Reference Range Interpretation Comments Mean Corpuscular Hemoglobin Concent (test code = 786-4) 33.8 31-35 [facility] CenterRed Cell Distribution [id number] 06:16:00* Test Item Value Reference Range Interpretation Comments Red Cell Distribution Width (test code = 71936-1) 12.4 11.7 -14.4 [facility] CenterPlatelet Cttcu3018-13-10 06:16:00* Test Item Value Reference Range Interpretation Comments Platelet Count (test code = 777-3) 193 140-360 [facility] CenterNeutrophils (%) (Auto)2018-11-16 06:16:00 * Test Item Value Reference Range Interpretation Comments Neutrophils (%) (Auto) (test code = 80466-1) 59.9 38.7-80.0 [facility] CenterLymphocytes (%) (Auto)2018-11-16 06:16:00 * Test Item Value Reference Range Interpretation Comments Lymphocytes (%) (Auto) (test code = 736-9) 31.8 18.0-39.1 [facility] CenterMonocytes (%) (Auto)2018-11-16 06:16:00* Test Item Value Reference Range Interpretation Comments Monocytes (%) (Auto) (test code = 5905-5) 5.6 4.4-11.3 [facility] CenterEosinophils (%) (Auto)2018-11-16 06:16:00 * Test Item Value Reference Range Interpretation Comments Eosinophils (%) (Auto) (test code = 713-8) 1.6 0.0-6.0 [facility] CenterBasophils (%) (Auto)2018-11-16 06:16:00* Test Item Value Reference Range Interpretation Comments Basophils (%) (Auto) (test code = 706-2) 0.6 0.0-1.0 [facility] CenterIM GRANULOCYTES %2018-11-16 06:16:00* Test Item Value Reference Range Interpretation Comments IM GRANULOCYTES % (test code = IM GRANULOCYTES %) 0.5 0.0- 1.0 [facility] CenterNeutrophils # (Auto)2018-11-16 06:16:00* Test Item Value Reference Range Interpretation Comments Neutrophils # (Auto) (test code = 751-8) 5.2 2.1-6.9 [facility] CenterLymphocytes # (Auto)2018-11-16 06:16:00* Test Item Value Reference Range Interpretation Comments Lymphocytes # (Auto) (test code = 20885-7) 2.8 1.0-3.2 [facility] CenterMonocytes # (Auto)2018-11-16 06:16:00* Test Item Value Reference Range Interpretation Comments Monocytes # (Auto) (test code = 742-7) 0.5 0.2-0.8 [facility] CenterEosinophils # (Auto)2018-11-16 06:16:00* Test Item Value Reference Range Interpretation Comments Eosinophils # (Auto) (test code = 711-2) 0.1 0.0-0.4 [facility] CenterBasophils # (Auto)2018-11-16 06:16:00* Test Item Value Reference Range Interpretation Comments Basophils # (Auto) (test code = 704-7) 0.1 0.0-0.1 [facility] CenterAbsolute Immature Granulocyte (auto 2018-11-16 06:16:00* Test Item Value Reference Range Interpretation Comments Absolute Immature Granulocyte (auto (roel t code = Absolute Immature Granulocyte (auto) 0.04 0-0.1 [facility] CenterCT ABDOMEN/PELVIS [id number] 18:26:00 [place] [address] Patient Name: CESARIO CROWDER MR #: [id number] : 1970 Age/Sex: 48/F Req #: [id number] Adm Physician: Ordered by: LISSETTE DIETZ DELIVERY MAN Report #: [id number] Location: ER Room/Bed: Procedure: [id number] CT/CT ABDOMEN/PELVIS WO Exam Date: 11/15/18 Exam Singh e: 1800 REPORT STATUS: Signed EX AM: CT of the abdomen and pelvis WITHOUT contrast HISTORY: Stone protocol , right flank and right lower quadrant pain COMPARISON: None available. TECHNIQUE: The abdomen and pelvis were scanned utilizing a multidetector jimi yandel scanner. Coronal and sagittal reformats are available. [place] OTOCOL: Renal colic IV CONTRAST: None, which limits sensitivity and specificity of evaluation of the soft tissues and vascular structures. ORAL CONTRAST: None, which limits sensitivity and specificity of e valuation of the bowel. RADIATION DOSE: Total DLP: 421.21 mGy*cm Estimated effective dose: (DLP x 0.015 x size factor) Dose modulation, iterative reconstruction, and/or weight based adjustment of the mA/kV was utilized to reduce the radiation dose to as low as reasonably ac hievable. COMPLICATIONS: None FINDINGS: LOWER THORAX: Unrem arkable. HEPATOBILIARY: No definite focal hepatic lesions. No biliary ductal dilatation. Metallic clips in the right upper quadrant of the abdomen are compatible with prior cholecystectomy. SPLEEN: No splenomegaly. P ANCREAS: No focal masses or ductal dilatation. ADRENALS: No adrenal nodul e. KIDNEYS/URETERS: No hydronephrosis or solid mass lesion identified. A 2 mm calcification at the distal right ureter. An adjacent punctate calcific density appears just anterior to the distal ureter and a more distal 3 mm calc ific density appears just posterior to the distal ureter ureter. A metallic surgical clip between the anterior margin of the right kidney and the liver. PELVIC ORGANS/BLADDER: The urinary bladder is partially decompressed, acce ntuating the diffusely thickened appearance of the urinary bladder wall. PE RITONEUM / RETROPERITONEUM: No free air or fluid. GI TRACT: On limited evaluat ion of the gastrointestinal tract, no dilation or wall thickening identified. The appendix appears normal. The stomach is partially decompressed, limiting evaluation. LYMPH NODES: No pathologically enlarged lymph nodes. VESSELS: Diffuse scattered atherosclerotic vascular calcifications. BONES: No aggress freddie osseous lesion or acute fracture. SOFT TISSUES: Small fat-containing focal hernia no adjacent fat stranding. IMPRESSION: Probable 2 mm punctate, n onobstructing, stone within the distal right ureter. The 2 additional calcific ations are likely phleboliths adjacent to the distal ureter. Signed by: Sanjiv Sunshine D.O., M.M.M. on 11/15/2018 6:35 PM Dictated By: MIGUELITO WILLI S DO 34 Transcribed By: DIOGO on 11/15/181834 COPY TO: LISSETTE DIETZ NP Amylase [id number] 18:07:00* Test Item Value Reference Range Interpretation Comments Amylase Level (test code = 1798-8) 35 25-125 [facility] CenterLipase2019-04-25 18:07:00* Test Item Value Reference Range Interpretation Comments Lipase (test code = 3040-3) 18 8-78 [facility] CenterAmylase Hbdkg6095-32-42 18:07:00* Test Item Value Reference Range Interpretation Comments Amylase Level (test code = 1798-8) 35 25-125 [facility] CenterUrine [id number] 17:50:00* Test Item Value Reference Range Interpretation Comments Urine WBC (test code = 5821-4) 11-20 0-5 H [facility] CenterUrine [id number] 17:50:00* Test Item Value Reference Range Interpretation Comments Urine RBC (test code = 03652-3) 21-50 0-5 H [facility] CenterUrine Oftoiwlj1063-66-78 17:50:00* Test Item Value Reference Range Interpretation Comments Urine Bacteria (test code = 63320-8) MODERATE NONE H [facility] CenterUrine Epithelial Ykyis3142-34-38 17:50:00 * Test Item Value Reference Range Interpretation Comments Urine Epithelial Cells (test code = 98356-7) NONE NONE [facility] CenterUrine [id number] 17:50:00* Test Item Value Reference Range Interpretation Comments Urine WBC (test code = 5821-4) 11-20 0-5 H [facility] CenterUrine [id number] 17:50:00* Test Item Value Reference Range Interpretation Comments Urine RBC (test code = 16267-9) 21-50 0-5 H [facility] CenterUrine Ceeclkpy4163-95-21 17:50:00* Test Item Value Reference Range Interpretation Comments Urine Bacteria (test code = 26799-3) MODERATE NONE H [facility] CenterUrine Epithelial Rayvv0828-62-49 17:50:00 * Test Item Value Reference Range Interpretation Comments Urine Epithelial Cells (test code = 93962-8) NONE NONE [facility] CenterUrine Qjfet2537-08-59 17:47:00* Test Item Value Reference Range Interpretation Comments Urine Color (test code = 5778-6) YELLOW YELLOW [facility] CenterUrine Oscdyzf8681-11-80 17:47:00* Test Item Value Reference Range Interpretation Comments Urine Clarity (test code = 47965-7) CLOUDY CLEAR H [facility] CenterUrine Specific Mkjrdih4894-70-52 17:47:00 * Test Item Value Reference Range Interpretation Comments Urine Specific Pool (test code = 5811-5) 1.010 1.010-1.02 5 [facility] CenterUrine [id number] 17:47:00* Test Item Value Reference Range Interpretation Comments Urine pH (test code = 30315-2) 6 5-7 [facility] CenterUrine Leukocyte Bpepkawt6075-76-41 17:47:00* Test Item Value Reference Range Interpretation Comments Urine Leukocyte Esterase (test code = 5799-2) 2+ NEGATIVE H [facility] CenterUrine Ghixfyu2417-15-49 17:47:00* Test Item Value Reference Range Interpretation Comments Urine Nitrite (test code = 43172-1) NEGATIVE NEGATIVE [facility] CenterUrine Gghrprn7991-00-50 17:47:00* Test Item Value Reference Range Interpretation Comments Urine Protein (test code = 5804-0) 2+ NEGATIVE H [facility] CenterUrine Glucose (UA)2018-11-15 17:47:00* Test Item Value Reference Range Interpretation Comments Urine Glucose (UA) (test code = 2349-9) NEGATIVE NEGATIVE [facility] CenterUrine Virhzbj0348-03-01 17:47:00* Test Item Value Reference Range Interpretation Comments Urine Ketones (test code = 12200-4) NEGATIVE NEGATIVE [facility] CenterUrine Qqclgwhczujr4647-99-46 17:47:00* Test Item Value Reference Range Interpretation Comments Urine Urobilinogen (test code = 22182-8) 0.2 0.2-1 [facility] CenterUrine Ddfudjfki5681-45-17 17:47:00* Test Item Value Reference Range Interpretation Comments Urine Bilirubin (test code = 1978-6) NEGATIVE NEGATIVE [facility] CenterUrine Dquuf4420-63-94 17:47:00* Test Item Value Reference Range Interpretation Comments Urine Blood (test code = 54942-3) 4+ NEGATIVE H [facility] CenterUrine Eamt9686-64-83 17:47:00* Test Item Value Reference Range Interpretation Comments Urine Test (test code = 2106-3) NEGATIVE NEGATIVE [facility] CenterUrine Wkiej2719-08-35 17:47:00* Test Item Value Reference Range Interpretation Comments Urine Color (test code = 5778-6) YELLOW YELLOW [facility] CenterUrine Cepxuyu9474-63-49 17:47:00* Test Item Value Reference Range Interpretation Comments Urine Clarity (test code = 70431-9) CLOUDY CLEAR H [facility] CenterUrine Specific Hwygsiq6151-48-02 17:47:00 * Test Item Value Reference Range Interpretation Comments Urine Specific Pool (test code = 5811-5) 1.010 1.010-1.02 5 [facility] CenterUrine [id number] 17:47:00* Test Item Value Reference Range Interpretation Comments Urine pH (test code = 80568-2) 6 5-7 [facility] CenterU[facility] Leukocyte Iepykmhn5858-49-11 17:47:00* Test Item Value Reference Range Interpretation Comments Urine Leukocyte Esterase (test code = 5799-2) 2+ NEGATIVE H [facility] CenterUrine [id number] 17:47:00* Test Item Value Reference Range Interpretation Comments Urine Nitrite (test code = 94308-3) NEGATIVE NEGATIVE [facility] CenterUrine Ldratuu8337-70-73 17:47:00* Test Item Value Reference Range Interpretation Comments Urine Protein (test code = 5804-0) 2+ NEGATIVE H [facility] CenterUrine Glucose (UA)2018-11-15 17:47:00* Test Item Value Reference Range Interpretation Comments Urine Glucose (UA) (test code = 2349-9) NEGATIVE NEGATIVE [facility] CenterUrine Rrdlwqe7534-40-42 17:47:00* Test Item Value Reference Range Interpretation Comments Urine Ketones (test code = 40472-7) NEGATIVE NEGATIVE [facility] CenterUrine Hunzktuyrwrg0062-22-17 17:47:00* Test Item Value Reference Range Interpretation Comments Urine Urobilinogen (test code = 11127-7) 0.2 0.2-1 [facility] CenterUrine Mmcrndhqo1166-81-69 17:47:00* Test Item Value Reference Range Interpretation Comments Urine Bilirubin (test code = 1978-6) NEGATIVE NEGATIVE [facility] CenterUrine Ylegp2015-91-80 17:47:00* Test Item Value Reference Range Interpretation Comments Urine Blood (test code = 41761-4) 4+ NEGATIVE H [facility] CenterUrine Nxnf4315-42-07 17:47:00* Test Item Value Reference Range Interpretation Comments Urine Test (test code = 2106-3) NEGATIVE NEGATIVE [facility]
[2020-03-29] MEDS ORDERED: ONDANSETRON HCL INJ 2MG/ML 2ML 2 MG/ML VIAL IV STA (18:39)
[2020-03-29] MEDS ORDERED: KETOROLAC TROMETHAMINE 30 MG/ML VIAL IV STA (18:39)
--- NOTE | 2020-03-29 18:47 | Emergency Department Note ---
History of Present Illnes History of Present Illness Chief Complaint: COVID PUI History of Present Illness This is a 49 year old female presents with c/o right side pain and rlq pain, mild nausea, symptoms started yesterday, pt has h/o kidney stones, pt also reports had covid 1st week of february . Historian: Patient Arrival Mode: Car Emergency Operator Required: Yes Onset (how long ago): day(s) (1) Location: right side, rlq Quality: pain Radiation: Reports non-radiation Severity: moderate Onset quality: gradual Duration (how long): day(s) (1) Timing of current episode: constant Progression: unchanged Chronicity: new Context: Reports recent illness (covid 19 1 month ago); Denies recent surgery, Denies trauma/injury Relieving factors: none Exacerbating factors: none Associated symptoms: Reports nausea/vomiting Treatments prior to arrival: none Past Medical/Family History Physician Review I have reviewed the patient's past medical and family history. Any updates have been documented here. Past Medical History Recent Fever: No Clinical Suspicion of Infectio: Yes New/Unexplained Change in Ment: No Past Medical History: Kidney Stones, UTI's Other Medical History: ENDOMETREOSIS Past Surgical History: Cholecysctectomy, Other Surgery: ENDOMETREOSIS SX Social History Smoking Cessation: Never Smoker Alcohol Use: None Any Illegal Drug Use: No Family History Family history of heart diseas: No Other family history htn Other Last Tetanus: OOD Review of Systems Review of Systems Constitutional: Reports no symptoms EENTM: Reports no symptoms Cardiovascular: Reports no symptoms Respiratory: Reports no symptoms Gastrointestinal: Reports as per HPI Genitourinary: Reports as per HPI Musculoskeletal: Reports no symptoms Integumentary: Reports no symptoms Neurological: Reports no symptoms Psychological: Reports no symptoms Endocrine: Reports no symptoms Hematological/Lymphatic: Reports no symptoms Physical Exam Related Data Allergies: Coded Allergies: sulfamethoxazole (Verified Allergy, Mild, HIVES, 11/15/18) trimethoprim (Verified Allergy, Mild, HIVES, 11/15/18) Triage Vital Signs Vital Signs Date Time Temp Pulse Resp B/P (MAP) Pulse Ox O2 Delivery O2 Flow Rate FiO2 03/29/20 18:17 98.7 96 18 143/54 100 Room Air Vital signs reviewed: Yes Physical Exam CONSTITUTIONAL Constitutional: Present well-developed, Present well-nourished; Absent distressed HENT HENT: Present normocephalic, Present atraumatic, Present oropharynx clear/moist, Present nose normal HENT L/R: Present left ext ear normal, Present right ext ear normal EYES Eyes: Reports PERRL, Reports conjunctivae normal NECK Neck: Present ROM normal PULMONARY Pulmonary: Present effort normal, Present breath sounds normal CARDIOVASCULAR Cardiovascular: Present regular rhythm, Present heart sounds normal, Present capillary refill normal, Present normal rate GASTROINTESTINAL Abdominal: Present soft, Present bowel sounds normal, Present tender (mild rlq no rebound, no gaurding), Present right CVA tenderness (moderate) GENITOURINARY Genitourinary: Present exam deferred SKIN Skin: Present warm, Present dry MUSCULOSKELETAL Musculoskeletal: Present ROM normal NEUROLOGICAL Neurological: Present alert, Present oriented x 3, Present no gross motor or sensory deficits PSYCHOLOGICAL Psychological: Present mood/affect normal, Present judgement normal Results Laboratory Laboratory Laboratory Tests Test 03/29/20 18:50 White Blood Count 10.03 x10e3/uL (4.8-10.8) Red Blood Count 4.43 x10e6/uL (3.6-5.1) Hemoglobin 13.6 g/dL (12.0-16.0) Hematocrit 39.4 % (34.2-44.1) Mean Corpuscular Volume 88.9 fL (81-99) Mean Corpuscular Hemoglobin 30.7 pg (28-32) Mean Corpuscular Hemoglobin Concent 34.5 g/dL (31-35) Red Cell Distribution Width 12.7 % (11.7-14.4) Platelet Count 204 x10e3/uL (140-360) Neutrophils (%) (Auto) 60.6 % (38.7-80.0) Lymphocytes (%) (Auto) 32.3 % (18.0-39.1) Monocytes (%) (Auto) 4.1 % (4.4-11.3) Eosinophils (%) (Auto) 1.9 % (0.0-6.0) Basophils (%) (Auto) 0.7 % (0.0-1.0) Neutrophils # (Auto) 6.1 (2.1-6.9) Lymphocytes # (Auto) 3.2 (1.0-3.2) Monocytes # (Auto) 0.4 (0.2-0.8) Eosinophils # (Auto) 0.2 (0.0-0.4) Basophils # (Auto) 0.1 (0.0-0.1) Absolute Immature Granulocyte (auto 0.04 x10e3/uL (0-0.1) Urine Color Yellow (YELLOW) Urine Clarity Clear (CLEAR) Urine pH 6 (5 - 7) Urine Specific [place] 1.025 (1.010-1.025) Urine Protein Negative (NEGATIVE) Urine Glucose (UA) Negative (NEGATIVE) Urine Ketones 1+ (NEGATIVE) Urine Blood Negative (NEGATIVE) Urine Nitrite Negative (NEGATIVE) Urine Bilirubin Negative (NEGATIVE) Urine Urobilinogen 0.2 mg/dL (0.2 - 1) Urine Leukocyte Esterase Negative (NEGATIVE) Urine RBC None /HPF (0-5) Urine WBC 0-5 /HPF (0-5) Urine Epithelial Cells Few /LPF (NONE) Urine Bacteria Few /HPF (NONE) Urine Test Negative (NEGATIVE) Sodium Level 138 mmol/L (136-145) Potassium Level 3.3 mmol/L (3.5-5.1) Chloride Level 102 mmol/L (98-107) Carbon Dioxide Level 21 mmol/L (22-29) Anion Gap 18.3 mmol/L (8-16) Blood Urea Nitrogen 8 mg/dL (7-26) Creatinine 0.72 mg/dL (0.57-1.11) Estimat Glomerular Filtration Rate > 60 ML/MIN (60-) BUN/Creatinine Ratio 11 (6-25) Glucose Level 130 mg/dL (74-118) Calcium Level 9.2 mg/dL (8.4-10.2) Total Bilirubin 0.5 mg/dL (0.2-1.2) Aspartate Amino Transf (AST/SGOT) 82 IU/L (5-34) Alanine Aminotransferase (ALT/SGPT) 120 IU/L (0-55) Alkaline Phosphatase 102 IU/L (40-150) Total Protein 8.0 g/dL (6.5-8.1) Albumin 4.8 g/dL (3.5-5.0) Globulin 3.2 g/dL (2.3-3.5) Albumin/Globulin Ratio 1.5 (0.8-2.0) Lab results reviewed: Yes Imaging Imaging results reviewed: Yes Impressions Procedure: [id number] CT/CT ABDOMEN/PELVIS W Exam Date: 03/29/20 Exam Time: 2044 REPORT STATUS: Signed EXAM: CT Abdomen and Pelvis WITH contrast INDICATION: ^right flank pain, rlq pain ^[id number] ^2044 ^Y COMPARISON: CT abdomen/pelvis dated 11/15/2018 TECHNIQUE: Abdomen and pelvis were scanned utilizing a multidetector helical scanner from the lung base to the pubic symphysis after administration of IV contrast. Coronal and sagittal reformations were obtained. Dose modulation, iterative reconstruction, and/or weight based adjustment of the mA/kV was utilized to reduce the radiation dose to as low as reasonably achievable. Routine protocol was performed. Scan was performed when during portal venous phase. IV CONTRAST: 100 mL of Isovue-370 ORAL CONTRAST: None COMPLICATIONS: None RADIATION DOSE: Total DLP: 705.24 mGy*cm Estimated effective dose: (DLP x 0.015 x size factor) mSv CTDIvol has been reviewed. It is below the limits set by the Radiation Protocol Committee (RPC). FINDINGS: LINES and TUBES: None. LOWER THORAX: 4 mm subpleural left lower lobe nodule. HEPATOBILIARY: Hepatic steatosis. No focal hepatic lesions. No biliary ductal dilation. GALLBLADDER: Surgically absent. SPLEEN: No splenomegaly. PANCREAS: No focal masses or ductal dilatation. ADRENALS: No adrenal nodules KIDNEYS/URETERS: Kidneys enhance symmetrically. No hydronephrosis. No cystic or solid mass lesions. No stones. Left renal superior pole subcentimeter hypodensities too small to characterize. GI TRACT: No abnormal distention or evidence of bowel obstruction. Focal wall thickening and pericolonic fat stranding in left lower quadrant. Appendix is not visualized. PELVIC ORGANS/BLADDER: 2.8 cm left ovarian cyst. LYMPH NODES: No lymphadenopathy. VESSELS: Unremarkable. PERITONEUM / RETROPERITONEUM: No free air or fluid. BONES: Unremarkable. SOFT TISSUES: Unremarkable. IMPRESSION: 1. Acute diverticulitis in left lower quadrant. No evidence of perforation or abscess formation. 2. Hepatic steatosis. 3. 4 mm left lung nodule. Without risk factors, no follow-up is necessary. With risk factors, follow-up with low-dose chest CT in one year is optional. Signed by: Dr. Gerald Oviedo MD on 03/29/2020 9:28 PM Dictated By: GERALD OVIEDO MD 27 Transcribed By: DIOGO on 03/29/202127 COPY TO: ADONAY ROBLERO MD~ Assessment & Plan Medical Decision Making MDM pt with right flank and rlq pain cbc, cmp, ua, preg test, ct abd/pelvis ordered to eval for uti, appenidicitis, kidney stone, electrolyte abnormality, leukocytosis toradol 30 mg iv ordered zofran 4 mg iv ordered PT FOUND TO HAVE DIVERTICULITIS DISCHARGED WITH PRESCRIPTIONS FOR CIPRO 500 MG PO BID FOR 14 DAYS, FLAGYL 500 MG PO BID FOR 14 DAYS, TRAMADOL 50 MG PO Q 6 HOURS PRN PAIN #20, ZOFRAN 0DT 4 MG 1 SL Q 6 HOURS PRN NAUSEA Assessment & Plan Final Impression: (1) Diverticulitis Depart Disposition: HOME, SELF-CARE Last Vital Signs Date Time Temp Pulse Resp B/P (MAP) Pulse Ox O2 Delivery O2 Flow Rate FiO2 03/29/20 18:17 98.7 96 18 143/54 100 Room Air Home Meds Reported Medications Ciprofloxacin Hcl (CIPRO) 500 Mg Tablet, 500 MG PO BID for 14 Days, #30 TAB 11/18/18 Medications in the ED Ketorolac Tromethamine 30 mg ONCE STAT IV ; Start 03/29/20 at 18:39; Stop 03/29/20 at 18:40; Status UNV Ondansetron HCl 4 mg NOW STAT IV ; Start 03/29/20 at 18:39; Stop 03/29/20 at 18:40; Status UNV ADONAY ROBLERO MD Mar 29, 2020 18:47
[2020-03-29 19:11] LABS: BASOPHILS # (AUTO) 0.1 (0.0-0.1); BASOPHILS % 0.7 % (0.0-1.0); EOSINOPHILS # (AUTO) 0.2 (0.0-0.4); EOSINOPHILS % 1.9 % (0.0-6.0); HEMATOCRIT 39.4 % (34.2-44.1); HEMOGLOBIN 13.6 g/dL (12.0-16.0); LYMPHOCYTES # (AUTO) 3.2 (1.0-3.2); LYMPHOCYTES % 32.3 % (18.0-39.1); MEAN CORPUSCULAR HEMOGLOBIN 30.7 pg (28-32); MEAN CORPUSCULAR HGB CONC 34.5 g/dL (31-35); MEAN CORPUSCULAR VOLUME 88.9 fL (81-99); MONOCYTES # (AUTO) 0.4 (0.2-0.8); MONOCYTES % 4.1 % (4.4-11.3); NEUTROPHILS # (AUTO) 6.1 (2.1-6.9); NEUTROPHILS % 60.6 % (38.7-80.0); PLATELET COUNT 204 x10e3/uL (140-360); RED BLOOD COUNT 4.43 x10e6/uL (3.6-5.1); RED CELL DISTRIBUTION WIDTH 12.7 % (11.7-14.4)
[2020-03-29 19:18] LABS: COLOR,URINE YELLOW (YELLOW)
[2020-03-29 19:21] LABS: CLARITY,URINE CLEAR (CLEAR); LEUKOCYTE ESTERASE ,URINE NEGATIVE (NEGATIVE); NITRITE,URINE NEGATIVE (NEGATIVE); PROTEIN,URINE DIPSTICK NEGATIVE (NEGATIVE)
[2020-03-29 19:22] LABS: BILIRUBIN,URINE NEGATIVE (NEGATIVE); KETONES,URINE 1+ (NEGATIVE); PREGNANCY TEST, URINE NEGATIVE (NEGATIVE); URINE UROBILINOGEN 0.2 mg/dL (0.2 - 1)
[2020-03-29 19:29] LABS: ALANINE AMINOTRANSFERASE 120 IU/L (0-55); ALBUMIN 4.8 g/dL (3.5-5.0); ALBUMIN/GLOBULIN RATIO 1.5 (0.8-2.0); ALKALINE PHOSPHATASE 102 IU/L (40-150); ANION GAP 18.3 mmol/L (8-16); BLOOD UREA NITROGEN 8 mg/dL (7-26); BUN/CREATININE RATIO 11 (6-25); CALCIUM 9.2 mg/dL (8.4-10.2); CARBON DIOXIDE 21 mmol/L (22-29); CHLORIDE 102 mmol/L (98-107); CREATININE, SERUM 0.72 mg/dL (0.57-1.11); EST GLOMERULAR FILTRATION RATE > 60 ML/MIN (60-); GLUCOSE 130 mg/dL (74-118); POTASSIUM 3.3 mmol/L (3.5-5.1); SODIUM 138 mmol/L (136-145)
[2020-03-29 19:34] LABS: WBC,URINE (MAN) 0-5 /HPF (0-5)
[2020-03-29 19:35] LABS: BACTERIA,URINE FEW /HPF; EPITHELIAL CELLS,URINE FEW /LPF
[2020-03-29] MEDS ORDERED: IOPAMIDOL 370 MG/ML 200 ML INFUS..BTL INJ ONE (20:26)
[2020-03-29] MEDS ORDERED: SODIUM CHLORIDE 0.9% 50ML 50 ML ONE (20:26)
--- NOTE | 2020-03-29 20:59 | NUR ---
RAPID RESPONSE CALLED WHILE PATIENT AT CT SCAN. ON ARRIVAL TO CT, PT C/O "THROAT FEELING ODD" P RECEIVING IV CONTRAST. NO RESP DISTRESS NOTED. RESP EVEN AND UNLABORED ON RA. PT NOTED ANXIOUS. MD ORDERED BENADRYL IV. BENADRYL ADMINISTERED AT THIS TIME.
[2020-03-29] MEDS ORDERED: DIPHENHYDRAMINE HCL INJ 50 MG/ML VIAL IV ONE (21:00)
[2020-03-29] MEDS ORDERED: DIPHENHYDRAMINE HCL INJ 50 MG/ML VIAL ONE (21:01)
--- NOTE | 2020-03-29 21:31 | Diagnostic Imaging Report ---
EXAM: CT Abdomen and Pelvis WITH contrast INDICATION: ^right flank pain, rlq pain ^[id number] ^2044 ^Y COMPARISON: CT abdomen/pelvis dated 11/15/2018 TECHNIQUE: Abdomen and pelvis were scanned utilizing a multidetector helical scanner from the lung base to the pubic symphysis after administration of IV contrast. Coronal and sagittal reformations were obtained. Dose modulation, iterative reconstruction, and/or weight based adjustment of the mA/kV was utilized to reduce the radiation dose to as low as reasonably achievable. Routine protocol was performed. Scan was performed when during portal venous phase. IV CONTRAST: 100 mL of Isovue-370 ORAL CONTRAST: None COMPLICATIONS: None RADIATION DOSE: Total DLP: 705.24 mGy*cm Estimated effective dose: (DLP x 0.015 x size factor) mSv CTDIvol has been reviewed. It is below the limits set by the Radiation Protocol Committee (RPC). FINDINGS: LINES and TUBES: None. LOWER THORAX: 4 mm subpleural left lower lobe nodule. HEPATOBILIARY: Hepatic steatosis. No focal hepatic lesions. No biliary ductal dilation. GALLBLADDER: Surgically absent. SPLEEN: No splenomegaly. PANCREAS: No focal masses or ductal dilatation. ADRENALS: No adrenal nodules KIDNEYS/URETERS: Kidneys enhance symmetrically. No hydronephrosis. No cystic or solid mass lesions. No stones. Left renal superior pole subcentimeter hypodensities too small to characterize. GI TRACT: No abnormal distention or evidence of bowel obstruction. Focal wall thickening and pericolonic fat stranding in left lower quadrant. Appendix is not visualized. PELVIC ORGANS/BLADDER: 2.8 cm left ovarian cyst. LYMPH NODES: No lymphadenopathy. VESSELS: Unremarkable. PERITONEUM / RETROPERITONEUM: No free air or fluid. BONES: Unremarkable. SOFT TISSUES: Unremarkable. IMPRESSION: 1. Acute diverticulitis in left lower quadrant. No evidence of perforation or abscess formation. 2. Hepatic steatosis. 3. 4 mm left lung nodule. Without risk factors, no follow-up is necessary. With risk factors, follow-up with low-dose chest CT in one year is optional. Signed by: Dr. Gerald Oviedo MD on 03/29/2020 9:28 PM
[2020-03-29 21:51] VITALS: BP 120/65
== END 2020-03-29 21:58 | disposition home or self-care (01) ==
LOC: ER 18:20
DX: R10.31 Right lower quadrant pain (principal); R11.2 Nausea with vomiting, unspecified; K57.92 Diverticulitis of intestine, part unspecified, without perforation or abscess without bleeding; N80.9 Endometriosis, unspecified
CPT/HCPCS: 36415; 74177; 80053; 81001; 81025; 85025; 99284; J1200; J1885; J2405; Q9967

== ENCOUNTER → 2020-05-28 | Day surgery (SDC) | payer BC ==
[~2020-05-28] MED LIST changes: +FENTANYL CITRATE/PF 100MCG/2 ML INJ ONE; +GLUCAGON FOR INJ 1 MG VIAL ONE; +HYOSCYAMINE 0.125 MG TAB ONE; +LIDOCAINE HCL 2% LOCAL INJ 5 ML SDV VIAL INJ ONE; +MIDAZOLAM HCL 2 MG/2 ML VIAL ONE; +PROPOFOL IV EMULSION 10 MG/ML 20 ML VIAL ONE
[2020-05-28 15:43] VITALS: BP 133/85
--- NOTE | 2020-05-28 15:59 | Operative Report ---
DATE OF PROCEDURE: 05/28/2020 SURGEON: Gorge Henley MD PROCEDURE: Colonoscopy with biopsies. INDICATIONS FOR COLONOSCOPY: History of diverticulitis, bright red blood per rectum. MEDICATIONS: The patient was done under MAC, please see anesthesiologist's note. PROCEDURE IN DETAIL: With the patient in the left lateral decubitus position, a flexible fiberoptic Olympus colonoscope was inserted into the rectum with ease and advanced all the way to the cecum. Mucosa overlying the cecum appeared to be within normal limits. The ileocecal valve was intubated and the scope was advanced into the terminal ileum. Biopsies were obtained. The scope was then withdrawn back into the colon. It was then withdrawn slowly. Mucosa overlying the ascending and the transverse appeared to be within normal limits. Diverticular disease was noted to involve the distal descending and the sigmoid colon. Mucosa overlying the distal sigmoid as well as the rectum revealed some patchy to diffuse erythema and moderate edema and some friability. Biopsies were obtained. The scope was then retroflexed into the distal rectum and small internal hemorrhoids were noted, none of which was actively bleeding. The scope was then straightened out, it was subsequently withdrawn, and the patient tolerated the procedure well. IMPRESSION: 1. Diverticulosis. 2. Proctosigmoiditis, mild. 3. Internal hemorrhoids, none actively bleeding. PLAN: Follow up histology. Initiate high-fiber, low-fat diet. Initiate high-fiber supplement. The patient might benefit from a followup colonoscopy in 5 years. Gorge Henley MD [facility] [place]/MIRIAN /[id number] cc: Mike Nava
== END | disposition home or self-care (01) ==
LOC: OR 13:43
PROVIDERS: ATTEND Internal Medicine Gastroenterology
DX: K57.92 Diverticulitis of intestine, part unspecified, without perforation or abscess without bleeding (principal); K63.89 Other specified diseases of intestine; K64.8 Other hemorrhoids; K62.5 Hemorrhage of anus and rectum; F41.9 Anxiety disorder, unspecified; Z88.2 Allergy status to sulfonamides; Z01.812 Encounter for preprocedural laboratory examination; Z11.59 Encounter for screening for other viral diseases; Z87.442 Personal history of urinary calculi
CPT/HCPCS: 45380; J1610; J2001; J2704; U0002; 45378; J2250; J3010

== ENCOUNTER 2021-09-27 08:06 | Observation (INO) | payer BC ==
[~2021-09-27] VITALS: Ht 154.9 cm; Wt 69.9 kg
[~2021-09-27 08:06] MED LIST changes: -FENTANYL CITRATE/PF 100MCG/2 ML INJ ONE; -GLUCAGON FOR INJ 1 MG VIAL ONE; -HYOSCYAMINE 0.125 MG TAB ONE; -LIDOCAINE HCL 2% LOCAL INJ 5 ML SDV VIAL INJ ONE; -MIDAZOLAM HCL 2 MG/2 ML VIAL ONE; -PROPOFOL IV EMULSION 10 MG/ML 20 ML VIAL ONE
[2021-09-27] MEDS ORDERED: SODIUM CHLORIDE 0.9% 1000ML 1,000 ML IV STA (08:25)
[2021-09-27] MEDS ORDERED: ONDANSETRON HCL INJ 2MG/ML 2ML 2 MG/ML VIAL IV STA (08:25)
[2021-09-27] MEDS ORDERED: Morphine 2mg Syringe 2 MG/ML SYR IV STA (08:25)
[2021-09-27] MEDS ORDERED: ASPIRIN 81 MG CHEW TAB PO ONE (08:30)
[2021-09-27] MEDS ORDERED: METOPROLOL TARTRATE 25 MG TAB PO ONE (08:30)
[2021-09-27 08:43] LABS: BASOPHILS # (AUTO) 0.1 (0.0-0.1); BASOPHILS % 0.7 % (0.0-1.0); EOSINOPHILS # (AUTO) 0.2 (0.0-0.4); HEMATOCRIT 41.6 % (34.2-44.1); HEMOGLOBIN 14.9 g/dL (12.0-16.0); LYMPHOCYTES # (AUTO) 3.3 (1.0-3.2); LYMPHOCYTES % 35.4 % (18.0-39.1); MEAN CORPUSCULAR HEMOGLOBIN 31.3 pg (28-32); MEAN CORPUSCULAR HGB CONC 35.8 g/dL (31-35); MEAN CORPUSCULAR VOLUME 87.4 fL (81-99); MONOCYTES # (AUTO) 0.4 (0.2-0.8); MONOCYTES % 3.9 % (4.4-11.3); NEUTROPHILS # (AUTO) 5.4 (2.1-6.9); NEUTROPHILS % 57.6 % (38.7-80.0); PLATELET COUNT 189 x10e3/uL (140-360); RED BLOOD COUNT 4.76 x10e6/uL (3.6-5.1); RED CELL DISTRIBUTION WIDTH 11.9 % (11.7-14.4)
[2021-09-27 08:59] LABS: INR 0.91; PROTHROMBIN TIME 13.1 seconds (11.9-14.5)
[2021-09-27 09:12] LABS: ALANINE AMINOTRANSFERASE 30 IU/L (0-55); ALBUMIN 4.3 g/dL (3.5-5.0); ALBUMIN/GLOBULIN RATIO 1.1 (0.8-2.0); ALKALINE PHOSPHATASE 121 IU/L (40-150); ANION GAP 16.7 mmol/L (8-16); BLOOD UREA NITROGEN 13 mg/dL (7-26); BUN/CREATININE RATIO 18 (6-25); CALCIUM 10.1 mg/dL (8.4-10.2); CARBON DIOXIDE 22 mmol/L (22-29); CHLORIDE 104 mmol/L (98-107); CREATINE KINASE 138 IU/L (29-168); CREATININE, SERUM 0.74 mg/dL (0.57-1.11); EST GLOMERULAR FILTRATION RATE 83 ML/MIN (60-); GLUCOSE 203 mg/dL (74-118); POTASSIUM 3.7 mmol/L (3.5-5.1); SODIUM 139 mmol/L (136-145)
[2021-09-27] MEDS ORDERED: NITROGLYCERIN 0.4 MG SUBL SL PRN (09:30)
[2021-09-27] MEDS ORDERED: ONDANSETRON HCL INJ 2MG/ML 2ML 2 MG/ML VIAL IV PRN (09:30)
[2021-09-27] MEDS: METOPROLOL TARTRATE 25 MG TAB PO SCH ×2 (09:30→21:08)
[2021-09-27] MEDS ORDERED: ACETAMINOPHEN 325 MG TAB PO PRN (09:45)
[2021-09-27] MEDS ORDERED: DOCUSATE SODIUM 100 MG CAP PO PRN (09:45)
[2021-09-27 10:00] LABS: CHOL/HDL RATIO 3.3 (3.0-3.6)
[2021-09-27 11:05] VITALS: BP 129/76
[2021-09-27] MEDS ORDERED: METOPROLOL SUCC25 MG PO (11:20)
[2021-09-27] MEDS ORDERED: JARDIANCE10 MG PO (11:20)
[2021-09-27] MEDS ORDERED: ROSUVASTATIN CA40 MG PO (11:20)
[2021-09-27] MEDS ORDERED: ASPIRIN81 MG PO (11:20)
[2021-09-27] MEDS ORDERED: METFORMIN HCL500 M1 PO (11:20)
[2021-09-27] MEDS ORDERED: NITROGLYCERIN0.4 MG SL (11:20)
[2021-09-27 12:33] VITALS: BP 114/69
[2021-09-27 13:00] VITALS: BP 114/69
[2021-09-27 14:08] LABS: CREATINE KINASE MB 0.7 ng/mL (0-5.0)
[2021-09-27 15:00] VITALS: BP 119/64
[2021-09-27] MEDS ORDERED: ENOXAPARIN SOD INJ 40 MG/0.4 ML SYR SC SCH (17:00)
[2021-09-27 20:00] VITALS: BP 117/57
[2021-09-27 20:43] LABS: CREATINE KINASE MB 0.6 ng/mL (0-5.0)
[2021-09-28] VITALS: BP 106/68
[2021-09-28 00:05] LABS: CREATINE KINASE MB 0.7 ng/mL (0-5.0)
[2021-09-28 04:00] VITALS: BP 100/56
[2021-09-28 05:44] LABS: BASOPHILS # (AUTO) 0.1 (0.0-0.1); BASOPHILS % 0.8 % (0.0-1.0); EOSINOPHILS # (AUTO) 0.2 (0.0-0.4); EOSINOPHILS % 1.9 % (0.0-6.0); HEMATOCRIT 40.4 % (34.2-44.1); HEMOGLOBIN 14.1 g/dL (12.0-16.0); LYMPHOCYTES # (AUTO) 3.4 (1.0-3.2); LYMPHOCYTES % 40.8 % (18.0-39.1); MEAN CORPUSCULAR HEMOGLOBIN 30.9 pg (28-32); MEAN CORPUSCULAR HGB CONC 34.9 g/dL (31-35); MEAN CORPUSCULAR VOLUME 88.6 fL (81-99); MONOCYTES # (AUTO) 0.4 (0.2-0.8); MONOCYTES % 5.1 % (4.4-11.3); NEUTROPHILS # (AUTO) 4.2 (2.1-6.9); PLATELET COUNT 180 x10e3/uL (140-360); RED BLOOD COUNT 4.56 x10e6/uL (3.6-5.1)
[2021-09-28 06:13] LABS: ALBUMIN 3.9 g/dL (3.5-5.0); ALBUMIN/GLOBULIN RATIO 1.1 (0.8-2.0); ANION GAP 14.8 mmol/L (8-16); CALCIUM 9.7 mg/dL (8.4-10.2); CHOL/HDL RATIO 3.9 (3.0-3.6); CREATININE, SERUM 0.8 mg/dL (0.57-1.11); POTASSIUM 3.8 mmol/L (3.5-5.1)
[2021-09-28 07:34] VITALS: BP 100/56
[2021-09-28] MEDS ORDERED: REGADENOSON 0.4 MG/5 ML SYR IV ONE (07:50)
[2021-09-28] MEDS ORDERED: ASPIRIN 81 MG ENTERIC COATED PO SCH (09:00)
[2021-09-28] MEDS ORDERED: CRESTOR 10MG PO SCH ×2 (09:00→21:00)
[2021-09-28] MEDS ORDERED: EMPAGLIFLOZIN 10 MG TABLET PO SCH (09:00)
[2021-09-28] MEDS ORDERED: NON-FORMULARY MEDICATION (Rosuvastatin Calcium 40 MG) PO SCH (09:00)
[2021-09-28 09:28] VITALS: BP 108/65
[2021-09-28] MEDS ORDERED: ONDANSETRON HCL 4 MG ORAL DISINTEGRATING TAB PO PRN (09:45)
[2021-09-28] MEDS: METOPROLOL TARTRATE 25 MG TAB PO SCH (10:20)
== END 2021-09-28 10:21 | disposition home or self-care (01) ==
LOC: ER 08:45 → INTOOBSV 09:24 → ERHOLD 09:24 → MED/SURG3 10:28
PROVIDERS: ADMIT Internal Medicine; ATTEND Internal Medicine
DX: R07.89 Other chest pain (principal); E11.9 Type 2 diabetes mellitus without complications; E78.5 Hyperlipidemia, unspecified; Z20.822 Contact with and (suspected) exposure to COVID-19; E66.9 Obesity, unspecified; Z68.31 Body mass index [BMI] 31.0-31.9, adult
CPT/HCPCS: 36415 ×2; 71045; 78452; 80053 ×2; 80061 ×2; 82550; 82553; 82948 ×2; 83036; 83735; 83880; 84484; 85025 ×2; 85610; 85730; 93005; 93017; 93306; 99284; A9502; G0378 ×2; J1650; J2270; J2405; J2785; J7030; U0002

== ENCOUNTER 2022-09-07 12:34 | Emergency (ER) | payer BC ==
[~2022-09-07] VITALS: Ht 154.9 cm; Wt 69.9 kg
[~2022-09-07 12:34] MED LIST changes: +ASPIRIN81 MG PO; +JARDIANCE10 MG PO; +METFORMIN HCL500 M1 PO; +METOPROLOL SUCC25 MG PO; +NITROGLYCERIN0.4 MG SL; +ROSUVASTATIN CA40 MG PO
[2022-09-07 13:13] LABS: BASOPHILS # (AUTO) 0.1 (0.0-0.1); BASOPHILS % 1.3 % (0.0-1.0); EOSINOPHILS # (AUTO) 0.4 (0.0-0.4); EOSINOPHILS % 4.8 % (0.0-6.0); HEMATOCRIT 40.8 % (34.2-44.1); HEMOGLOBIN 13.7 g/dL (12.0-16.0); LYMPHOCYTES # (AUTO) 2.8 (1.0-3.2); LYMPHOCYTES % 37.8 % (18.0-39.1); MEAN CORPUSCULAR HEMOGLOBIN 30.2 pg (28-32); MEAN CORPUSCULAR HGB CONC 33.6 g/dL (31-35); MEAN CORPUSCULAR VOLUME 90.1 fL (81-99); MONOCYTES # (AUTO) 0.4 (0.2-0.8); MONOCYTES % 4.7 % (4.4-11.3); NEUTROPHILS # (AUTO) 3.9 (2.1-6.9); NEUTROPHILS % 51.1 % (38.7-80.0); PLATELET COUNT 183 x10e3/uL (140-360); RED BLOOD COUNT 4.53 x10e6/uL (3.6-5.1); RED CELL DISTRIBUTION WIDTH 13.1 % (11.7-14.4)
[2022-09-07 13:31] LABS: ALANINE AMINOTRANSFERASE 30 IU/L (0-55); ALBUMIN 4.5 g/dL (3.5-5.0); ALBUMIN/GLOBULIN RATIO 1.3 (0.8-2.0); ALKALINE PHOSPHATASE 71 IU/L (40-150); ANION GAP 15.8 mmol/L (8-16); BLOOD UREA NITROGEN 13 mg/dL (7-26); BUN/CREATININE RATIO 18 (6-25); CALCIUM 9.8 mg/dL (8.4-10.2); CARBON DIOXIDE 25 mmol/L (22-29); CHLORIDE 106 mmol/L (98-107); CREATINE KINASE 201 IU/L (29-168); CREATININE, SERUM 0.71 mg/dL (0.57-1.11); GLUCOSE 137 mg/dL (74-118); POTASSIUM 3.8 mmol/L (3.5-5.1); SODIUM 143 mmol/L (136-145)
== END 2022-09-07 16:35 | disposition home or self-care (01) ==
LOC: ER 12:42
DX: R07.89 Other chest pain (principal); R10.13 Epigastric pain; E11.65 Type 2 diabetes mellitus with hyperglycemia; E78.5 Hyperlipidemia, unspecified; N80.9 Endometriosis, unspecified; R94.31 Abnormal electrocardiogram [ECG] [EKG]; Z87.442 Personal history of urinary calculi
CPT/HCPCS: 36415; 71046; 80053; 82550; 82553; 83690; 83880; 84484; 85025; 85379; 93005; 99284

== ENCOUNTER 2024-06-22 09:26 | Emergency (ER) | payer BC ==
[~2024-06-22] VITALS: Ht 154.9 cm; Wt 63.5 kg
[~2024-06-22 09:26] MED LIST changes: +DICYCLOMINE HCL20 MG PO; +MECLIZINE HCL12.5 MG PO; +ONDANSETRON ODT4 MG PO; +PANTOPRAZOLE SO40 MG PO
[2024-06-22 09:37] VITALS: TEMP 98.5
[2024-06-22 10:22] LABS: CORONAVIRUS COVID-19 AG NEGATIVE (NEGATIVE); INFLUENZA A AG NEGATIVE (NEGATIVE); INFLUENZA B AG NEGATIVE (NEGATIVE)
[2024-06-22] MEDS: DEXAMETHASONE SOD PHOS 10 MG/1 ML VIAL IM ONE (11:05)
[2024-06-22 11:15] VITALS: PULSE 64; RESP 16; O2SAT 97
== END 2024-06-22 11:30 | disposition home or self-care (01) ==
LOC: ER 09:31
DX: J02.9 Acute pharyngitis, unspecified (principal); E11.65 Type 2 diabetes mellitus with hyperglycemia; E78.5 Hyperlipidemia, unspecified; N80.9 Endometriosis, unspecified; Z11.52 Encounter for screening for COVID-19; Z87.442 Personal history of urinary calculi
CPT/HCPCS: 36415; 82948; 83518; 87070; 87428; 99283; J1100